=== PATIENT | female | born 1995 | race Hispanic/Latino ===

== ENCOUNTER 2024-02-13 17:22 | Emergency (ER) | payer OTHER ==
[~2024-02-13] VITALS: Ht 167.6 cm; Wt 129.7 kg
[2024-02-13 17:47] LABS: RAPID GROUP A STREP negative (NEGATIVE)
[2024-02-13 17:53] LABS: SARS-CoV-2, RNA, NAAT NEGATIVE SARS CoV-2 (NEGATIVE)
[2024-02-13 17:57] LABS: INFLUENZA TYPE A Negative For Type A (NEGATIVE)
[2024-02-13 18:00] LABS: INFLUENZA TYPE B Positive For Type B (NEGATIVE)
[2024-02-13] MEDS ORDERED: OSEL75 PO (18:15)
[2024-02-13] MEDS ORDERED: BROM118S48 PO (18:15)
[2024-02-13] MEDS ORDERED: BENZ200C53 PO (18:15)
[2024-02-13 18:50] VITALS: BP 139/78; PULSE 90; RESP 18; O2SAT 99
== END 2024-02-13 18:56 | disposition home or self-care (01) ==
LOC: EDH 17:22
DX: J10.1 Influenza due to other identified influenza virus with other respiratory manifestations (principal); B34.9 Viral infection, unspecified; Z20.822 Contact with and (suspected) exposure to COVID-19; Z79.899 Other long term (current) drug therapy
CPT/HCPCS: 87635; 87804; 87880